=== PATIENT | female | born 1995 | race Caucasian/White ===

== ENCOUNTER 2017-08-05 21:36 | Emergency (ER) | payer BC, OTHER ==
[~2017-08-05] VITALS: Ht 165.1 cm; Wt 90.5 kg
[~2017-08-05 21:36] MED LIST: CIPR500T4 PO; HYDR-3498 PO; ONDA4TAB35 PO; PRENAT PO
[2017-08-05 21:51] VITALS: Ht 165.1 cm; Wt 90.5 kg
[2017-08-05] MEDS ORDERED: AMO500 PO (22:08)
[2017-08-05] MEDS ORDERED: ACET325T33 PO (22:08)
[2017-08-05] MEDS ORDERED: CIPR7.5D4 LEFT EAR (22:08)
--- NOTE | 2017-08-05 22:27 | ERD ---
ER Documentation Chief Complaint Date/Time DATE: 08/05/17 TIME: 22:18 Chief Complaint left ear pain HPI This is a 22 year old female presented to emergency department with left earache 2 days.Patient states she has had worsening earache for the last 2 days as well as nasal congestion and rhinitis. Patient rates pain 10/10 with worsening of pain with lowering her head. No fevers or chills. No vomiting. No headache. No sore throat or difficulty swallowing. No cough, shortness of breath or difficulty breathing. No recent swimming or water exposure. No neck pain or stiffness. No new rashes. Patient did not take any medications at home. Patient states she is 7 months however denies any abdominal pain , pelvic pain, vaginal bleeding or discharge. ROS All systems reviewed and are negative except as per history of present illness. Medications Home Meds Active Scripts Acetaminophen* (Tylenol*) 325 Mg Tablet, 1 TAB PO Q6 Y for PAIN AND OR ELEVATED TEMP, #20 TAB Prov:GRAZYNA WAITE NP 08/05/17 Amoxicillin* (Amoxicillin*) 500 Mg Cap, 500 MG PO TID for 10 Days, CAP Prov:GRAZYNA WAITE NP 08/05/17 Ciprofloxacin Hcl/Dexameth (Ciprodex Otic Suspension) 7.5 Ml Drops.susp, 4 DROP LEFT EAR BID for 7 Days, EA Prov:GRAZYNA WAITE NP 08/05/17 Ondansetron Hcl* (Zofran* ODT) 4 mg -ODT Tab.disper, 4 MG PO Q8 Y for NAUSEA AND /OR VOMITING, #30 TAB Prov:WALESKA VIZCAINO NP 09/29/15 Hydrocodone Bit-Acetaminophen* ([place]*) 5-325 Mg Tab, 1 TAB PO Q6 Y for PAIN, # 20 TAB Prov:CHRISTA RICCI PA-C 09/03/15 Ciprofloxacin Hcl* (Ciprofloxacin Hcl*) 500 Mg Tablet, 500 MG PO BID for 5 Days , TAB Prov:CHRISTA RICCI PA-C 09/03/15 Reported Medications Multivit/Min/Fol Ac/Iron/Pren* ( S*) 1 Tab Tab, 1 TAB PO DAILY, TAB 08/01/15 Allergies Allergies: Coded Allergies: No Known Allergies (Verified Allergy, Unknown, 10/11/15) PMhx/Soc Medical and Surgical Hx: pt denies Medical Hx, pt denies Surgical Hx History of Surgery: No Anesthesia Reaction: No Hx Neurological Disorder: No Hx Respiratory Disorders: No Hx Cardiac Disorders: No Hx Psychiatric Problems: No Hx Miscellaneous Medical Probl: No Hx Alcohol Use: No Hx Substance Use: No Hx Tobacco Use: No Smoking Status: Never smoker Physical Exam Vitals Vital Signs Date Time Temp Pulse Resp B/P Pulse Ox O2 Delivery O2 Flow Rate FiO2 08/05/17 21:51 98.1 81 18 130/73 98 Physical Exam Const: No acute distress, alert Head: Atraumatic Eyes: Normal Conjunctiva ENT: Normal External Ears, Nose and Mouth. Erythema to left ear canal, normal TM. Pain with tragus movement. No mastoid tenderness or erythema. No swelling to auricle. Neck: Full range of motion..~ No meningismus. No lymphadenopathy. Resp: Clear to auscultation bilaterally. No wheezing, rhonchi or crackles. Cardio: Regular rate and rhythm, no murmurs Abd: Soft, non tender, non distended. Normal bowel sounds Skin: No petechiae or rashes Back: No midline or flank tenderness Ext: No cyanosis, or edema Neur: Awake and alert Psych: Normal Mood and Affect Procedures/MDM MDM: 22 year old female presents the ER with left earache 2 days.Patient is afebrile and vital signs are stable. Physical exam reveals erythematous left ear canal without bulging of tympanic membrane. Normal lung exam. No signs or symptoms of respiratory distress. No discharge from ear. No mastoid tenderness. Pain with movement of tragus on left ear. No rashes. No headache, neck pain or neck stiffness. No fevers or chills. Patient is alert and oriented throughout ED visit. Low suspicion for pneumonia, pleural effusion, pneumothorax or acute VT. Differential diagnosis includes but not limited to URI, influenza, otitis media , otitis externa, asthma exacerbation, croup, bronchitis, bronchiolitis and costochondritis. Patient is appropriate for outpatient management and will be given prescription for Ciprodex and Amoxicillin. Instructed patient to follow-up with primary care provider in the next 2-3 days for reassessment and additional management. Return to ED for any high fever, chest pain, difficulty breathing, shortness breath, wheezing, vomiting, diarrhea, abdominal pain or any new or worsening symptoms. Patient verbalizes understanding. All questions answered at discharge. Disclaimer: Inadvertent spelling and grammatical errors are likely due to EHR/ dictation software use and do not reflect on the overall quality of patient care. Also, please note that the electronic time recorded on this note does not necessarily reflect the actual time of the patient encounter. Departure Diagnosis: Primary Impression: Otitis externa Otitis externa type: unspecified type Chronicity: acute Laterality: left Qualified Code: H60.502 - Acute otitis externa of left ear, unspecified type Condition: Stable Patient Instructions: External Ear Infection (Adult) Referrals: [facility] YOU HAVE RECEIVED A MEDICAL SCREENING EXAM AND THE RESULTS INDICATE THAT YOU DO NOT HAVE A CONDITION THAT REQUIRES URGENT TREATMENT IN THE EMERGENCY DEPARTMENT. FURTHER EVALUATION AND TREATMENT OF YOUR CONDITION CAN WAIT UNTIL YOU ARE SEEN IN YOUR DOCTORS OFFICE WITHIN THE NEXT 1-2 DAYS. IT IS YOUR RESPONSIBILITY TO MAKE AN APPOINTMENT FOR FOLOW-UP CARE. IF YOU HAVE A PRIMARY DOCTOR --you should call your primary doctor and schedule an appointment IF YOU DO NOT HAVE A PRIMARY DOCTOR YOU CAN CALL OUR PHYSICIAN REFERRAL HOTLINE AT IF YOU CAN NOT AFFORD TO SEE A PHYSICIAN YOU CAN CHOSE FROM THE FOLLOWING [facility] [address] [facility]. [facility] [address] [facility] [address] [facility] [facility] [address] [facility] [address] [facility]. [facility]. [address] [facility]. [facility] YOU HAVE RECEIVED A MEDICAL SCREENING EXAM AND THE RESULTS INDICATE THAT YOU DO NOT HAVE A CONDITION THAT REQUIRES URGENT TREATMENT IN THE EMERGENCY DEPARTMENT. FURTHER EVALUATION AND TREATMENT OF YOUR CONDITION CAN WAIT UNTIL YOU ARE SEEN IN YOUR DOCTORS OFFICE WITHIN THE NEXT 1-2 DAYS. IT IS YOUR RESPONSIBILITY TO MAKE AN APPOINTMENT FOR FOLOW-UP CARE. IF YOU HAVE A PRIMARY DOCTOR --you should call your primary doctor and schedule and appointment IF YOU DO NOT HAVE A PRIMARY DOCTOR YOU CAN CALL OUR PHYSICIAN REFERRAL HOTLINE AT . IF YOU CAN NOT AFFORD TO SEE A PHYSICIAN YOU CAN CHOSE FROM THE FOLLOWING [facility] INSTITUTIONS: [facility] [address] [place] [address] [facility] [address] [place] [address] [facility] [address] [place] [address] Additional Instructions: Call your primary care doctor TOMORROW for an appointment during the next 2-3 days.See the doctor sooner or return here if your condition worsens before your appointment time. Return to ED for any high fever, chest pain, difficulty breathing, shortness breath, wheezing, vomiting, diarrhea, abdominal pain or any new or worsening symptoms. GRAZYNA WAITE NP Aug 05, 2017 22:26
[2017-08-05 22:30] VITALS: BP 118/78; PULSE 93; RESP 18; TEMP 97.3
== END 2017-08-05 22:30 | disposition home or self-care (01) ==
LOC: FTE 21:36
DX: H60.502 Unspecified acute noninfective otitis externa, left ear (principal)
CPT/HCPCS: 99283

== ENCOUNTER 2018-01-13 10:44 | Emergency (ER) | END 2018-01-13 17:46 | disposition home or self-care (01) ==